=== PATIENT | male | born 1975 | race Caucasian/White ===

== ENCOUNTER 2021-03-22 20:08 | Emergency (ER) | payer OTHER ==
[~2021-03-22] VITALS: Ht 170.2 cm; Wt 77.1 kg
[~2021-03-22 20:08] MED LIST: KEFLEX500 MG PO; NOHOMEMEDICATIONS; ULTRAM 50MG TAB50 MG PO
[2021-03-22] MEDS ORDERED: OMEPRAZOLE40 MG PO (20:17)
[2021-03-22] MEDS ORDERED: MEDROLDOSEPACK PO (22:33)
[2021-03-22] MEDS ORDERED: PEPCID40 MG PO (22:33)
[2021-03-22 22:39] VITALS: BP 115/54
--- NOTE | 2021-03-23 14:03 | EKG ---
[place] [address] ELECTROCARDIOGRAM REPORT Name: BARI ALMODOVAR Room: [facility]#: [id number] Admission: 03/22/21 Attend Phys: Discharge: 03/22/21 Date of : 75 Date of Service: 03/22/212015 Report #: [id number] THIS REPORT FOR: //name// [facility] ED Test Date: 2021-03-22 Test Time: 20:16:25 Pat Name: BARI ALMODOVAR Department: Room: Gender: [employer] Installer: : 1975 Requested By: Yanely Luong Order Number: [id number] Payal MD: Toby Martinez Measurements Intervals [place] Rate: 65 P: 53 AR: 178 QRS: 90 QRSD: 99 T: 25 QT: 392 QTc: 408 Interpretive Statements Sinus rhythm Borderline right axis deviation No previous ECG available for comparison Electronically Signed On 03-23-2021 14:03:19 CDT by Toby Martinez [email or web address] <ELECTRONICALLY SIGNED> By: Toby Martinez MD, [facility] 03/23/21 1403 15 15 Toby Martinez MD, FACC /EPI
== END 2021-03-22 22:40 | disposition home or self-care (01) ==
LOC: M.ERS 20:08
DX: H57.89 Other specified disorders of eye and adnexa (principal); T78.1XXA Other adverse food reactions, not elsewhere classified, initial encounter; K21.9 Gastro-esophageal reflux disease without esophagitis; Z91.013 Allergy to seafood; Z79.899 Other long term (current) drug therapy; Y92.89 Other specified places as the place of occurrence of the external cause